=== PATIENT | male | born 1995 | race Caucasian/White ===

== ENCOUNTER 2017-01-16 16:19 | Emergency (ER) | payer OTHER ==
[2017-01-16 16:31] VITALS: TEMP 97.9
--- NOTE | 2017-01-16 17:29 | EDPHY ---
H & P Time Seen by Provider: 01/16/17 16:46 HPI/ROS: CHIEF COMPLAINT: Painful lump right eyelid HISTORY OF PRESENT ILLNESS: 21-year-old male presents to the emergency department by private vehicle concerned about a painful lump to his right eyelid for last few days. He states that he noticed the lump nearly 2 weeks ago and then this has become more painful. He tried to drain it on his own. He denies fevers or chills. ROS: Denies double vision, blurry vision, discharge from his eye, headache. Past Medical/Surgical History: Negative Social History: Senior at [employer] Smoking Status: Current some day smoker Physical Exam: On examination, the patient has a palpable lump noted to the right upper eyelid just below the right eyebrow. It is mildly tender to palpate. There is some surrounding redness. No scleral injection. Pupils are equal and round and reactive. No palpable bony tenderness to the orbit. Constitutional: Initial Vital Signs Temperature (C) 36.6 C 01/16/17 16:29 Heart Rate 76 01/16/17 16:29 Respiratory Rate 17 01/16/17 16:29 Blood Pressure 120/65 01/16/17 16:29 O2 Sat (%) 96 01/16/17 16:29 O2 Delivery Mode Room Air Allergies/Adverse Reactions: No Known Allergies Allergy (Verified 01/16/17 16:29) Home Medications: Medication Instructions Recorded Cephalexin [Keflex] 500 mg PO QID #20 cap 01/16/17 MDM/Departure - MDM Procedures: Procedure: Abscess drainage. The patient's abscess was located on the right upper eyelid. Risks, benefits, alternatives discussed with the patient and consent obtained. The abscess was incised with a #11 blade and purulent drainage was expressed. 1 single 6 0 Prolene suture placed to prevent gaping. The patient tolerated the procedure well. The procedure was performed by myself. ED Course/Re-evaluation: 21-year-old male presents to the emergency department with painful lump to the right upper eyelid. The wound was opened and drained. I do not think packing is indicated. Because the wound is in a cosmetic area, on his upper eyelid and the wound does gape open with movement of his eyelid, I recommended placing 1 single suture to hold wound closed but still allow for drainage. The patient verbalized understanding and agreed. He will return for suture removal in 5 days. He was also started on Keflex. Will return if he has any other concerns. - Depart Disposition: Home, Routine, Self-Care Clinical Impression: Sebaceous cyst of right eyelid Condition: Good Instructions: Care For Your Stitches (ED), Cyst (ED), Acute Wounds (ED) Additional Instructions: Wound Care Follow-Up: Removal of sutures in 5 days. Suture removal is complimentary in uncomplicated cases. Infection or abnormal findings would require reevaluation by the MD. In that case, you may be billed. 1 single suture was placed in the incision to help minimize scarring since wound would gape open with movement of your eyelid. You may still apply warm compresses as discussed and apply antibiotic ointment. Return if you develop increasing pain, increasing swelling, fever, or if you feel worse in any way. Keflex 500 mg 4 times daily. Try not to pick or squeeze the wound. Prescriptions: Cephalexin [Keflex] 500 mg PO QID #20 cap Referrals: Chan Mcdonald MD [Medical Doctor] - 2-3 days, if not improved
[2017-01-16 17:37] VITALS: BP 113/60; PULSE 70; RESP 16; O2SAT 97
== END 2017-01-16 17:37 | disposition home or self-care (01) ==
PROC: 089 Eye, Drainage (ICD-10-PCS; principal; 2017-01-16)
DX: L72.3 Sebaceous cyst (principal); F17.200 Nicotine dependence, unspecified, uncomplicated